=== PATIENT | female | born 1990 | race Caucasian/White ===

== ENCOUNTER 2020-07-25 12:04 | Emergency (ER) | payer SELFPAY ==
[2020-07-25 12:25] VITALS: BP 128/75; PULSE 122; RESP 18; TEMP 36; O2SAT 98
[2020-07-25 12:49] LABS: Add Urine Microscopic? YES; Appearance Urine Cloudy (Clear); Bacteria Urine 1+ /hpf; Bilirubin Urine Negative (Negative); Blood Urine 3+ (Negative); Color Urine Yellow (Yellow); Glucose Urine UA 3+ mg/dL (Negative); Ketones Urine 1+ mg/dL (Negative); Leukocyte Esterase Ur 3+ LEU/UL (Negative); Mucus Urine Moderate /lpf; Nitrate Urine Positive (Negative); Protein Urine 2+ mg/dL (Negative); RBC Urine >75 /hpf (0-2); Specific Grav Ur 1.026 (1.001-1.035); Squamous Epithelial Cell Urine Many /hpf (Few); Urobilinogen Urine Negative mg/dL (<2.0); WBC Clumps Urine Present /HPF; WBC Urine >75 /hpf
--- NOTE | 2020-07-25 14:17 | ED.FEMALEGU ---
HPI - Female Genitourinary General Chief complaint: Urogenital-Female Stated complaint: back pain/ uti? Time Seen by Provider: 07/25/20 14:10 Source: patient Mode of arrival: ambulatory Limitations: no limitations History of Present Illness HPI Narrative: A 30-year-old female presents into the emergency department today with complaints of urinary tract infection-like symptoms. She states it dejesus when she pees feels a lot of pressure and states that she is very familiar with this as she has had it before. Patient notes that the pain is also now starting to go to her back so she is worried that it may be progressing to her kidneys. Patient does endorse shaking chills this morning, she also was alternating with diaphoresis and fever. Related Data Home Medications Medication Instructions Recorded Confirmed insulin glargine [Lantus Solostar 30 unit SUBCUT QAM 07/25/20 07/25/20 U-100 Insulin] insulin regular human [Novolin R 1 sliding scale dose SUBCUT 07/25/20 07/25/20 Regular U-100 Insuln] USEASDIRECTD Allergies Allergy/AdvReac Type Severity Reaction Status Date / Time No Known Allergies Allergy Verified 07/25/20 12:05 Review of Systems Review of Systems: Narrative: CONSTITUTIONAL: Denies fever, chills, or sweats. EYES: Denies visual changes, redness, or discharge. ENT: Denies rhinorrhea, congestion, sore throat, or otalgia. CARDIOVASCULAR: Denies chest pain, palpitations, or edema. RESPIRATORY: Denies cough or dyspnea. GASTROINTESTINAL: Denies abdominal pain, nausea, vomiting, or diarrhea. GENITOURINARY: Endorses dysuria and bladder pressure. SKIN: Denies rash or itching. MUSCULOSKELETAL: Denies back pain, joint pain, or myalgia. NEUROLOGIC: Denies headache, numbness, dizziness, or weakness. PSYCHIATRIC: Denies anxiety or depression. [facility] Past Medical History Medical History Arm fracture, left Diabetes mellitus GERD (gastroesophageal reflux disease) Meningitis UTI (urinary tract infection) Surgical History Surgical History H/O section Family History Family History Mother Family history of elevated blood lipids Social History Social History Second hand tobacco smoke exposure: Yes Gender identity (if verbalized by the patient): Female Exam Narrative: Exam Narrative: GENERAL: Well-appearing, well-nourished, and in no acute distress. HEAD: Normocephalic, atraumatic. EYES: PERRLA and EOMI. ENT: Nares clear, no rhinorrhea or epistaxis. Mucous membranes moist. Oropharynx without tonsillar hypertrophy exudate or other lesions. Bilateral TMs pearly dorman nonbulging NECK: Supple. No adenopathy or masses. No carotid bruits or JVD CHEST: Clear to auscultation. No respiratory distress. No wheezes rales or rhonchi HEART: Regular rate and rhythm. No murmur heard. Normal peripheral pulses. ABDOMEN: Soft, nontender, nondistended, normal active bowel sounds. Right CVA tenderness, positive Tashi's punch EXTREMITIES: Normal range of motion. No edema. SKIN: Warm, dry, no rash. NEURO: No focal deficits. Alert and oriented x3. PSYCH: Normal mood and affect. Course Vital Signs Vital signs: Vital Signs Temperature 36.0 C L 07/25/20 12:25 Pulse Rate 122 H 07/25/20 12:25 Respiratory Rate 18 07/25/20 12:25 Blood Pressure 128/75 07/25/20 12:25 Pulse Oximetry 98 07/25/20 12:25 Temperature 36.0 C L 07/25/20 12:25 Pulse Rate 101 H 07/25/20 15:17 Respiratory Rate 16 07/25/20 15:17 Blood Pressure 99/56 L 07/25/20 15:17 Pulse Oximetry 97 07/25/20 15:17 MDM - Female Genitourinary MDM Narrative Medical decision making narrative: In brief this is a 30-year-old female came into the emergency department with complaints of dysuria, suprapubic pain and pressure and righ
[2020-07-25 14:26] VITALS: BP 110/74; PULSE 115; RESP 12; O2SAT 95
[2020-07-25] MEDS: LACTATED RINGERS 1,000 ML 999 ML IV CONT (14:37)
[2020-07-25] MEDS: KETOROLAC 15 MG/ML VIAL (*BKC) IV PUSH (14:37)
[2020-07-25] MEDS: PHENAZOPYRIDINE HCL 100 MG TABLET 200 MG PO (14:38)
--- NOTE | 2020-07-25 14:39 | PC.NURSE ---
Called laboratory, spoke to Maria Esther and gave VORB for labs ordered by EDP.
[2020-07-25 14:53] LABS: Basophils Absolute Auto 0.1 K/mm3 (0.0-0.1); Basophils Percent Auto 0.4 % (0.2-1.2); Eosinophils Percent Auto 0.1 % (0-4.4); Immature Granulocyte Absolute 0.12 K/mm3 (0.00-0.031); Immature Granulocyte Percent A 0.8 % (0-0.5); Lymphocytes Absolute Auto 1.06 K/mm3 (0.9-3.2); Lymphocytes Percent Auto 7.4 % (18.3-44.2); Mean Corpuscular HGB Conc 34.9 g/dl (32-36); Mean Corpuscular Hemoglobin 30.1 pg (26-34); Mean Corpuscular Volume 86.2 fl (80-100); Mean Platelet Volume 10.7 fl (7.4-10.4); Monocytes Absolute Auto 1.7 K/mm3 (0.1-0.6); Monocytes Percent Auto 11.9 % (2.6-8.5); Neutrophils Absolute Auto 11.3 K/mm3 (1.3-6.7); Neutrophils Percent Auto 79.4 % (45.5-73.1); Platelet Count Result 243 k/mm3 (150-375); Red Blood Count 4.99 M/mm3 (4.2-5.4); Red Cell Distribution Width 11.7 % (11.5-14.5); White Blood Count 14.3 K/mm3 (4.5-10.0)
[2020-07-25 14:56] LABS: Anion Gap 8 mmol/L (8-16); Blood Urea Nitrogen 13 mg/dL (7-17); Calcium 9.3 mg/dL (8.4-10.2); Carbon Dioxide 28 mmol/L (22-30); Chloride 98 mmol/L (98-107); Estimated CRCL calculation 136 ml/min; Estimated Glomerular Filt Rate > 60; Glucose 315 mg/dL (65-105); Potassium 4.1 mmol/L (3.4-5.0); Sodium 134 mmol/L (137-145)
[2020-07-25 14:58] LABS: Alveolar/Arterial O2 Gradient 22.9 mmHg; Base Excess ABG -0.2 mEq/l (+/-2.0); Carboxyhemoglobin 0.4 % THb (0-2.0); Fractional Inspired Oxygen 21 %; HCO3 ABG 24.1 mEq/l (22.0-26.0); Methemoglobin ABG 0.2 %THb (0-1.5); Oxygen Content ABG 18.7 %vol (16.0-22.0); Oxygen Saturation ABG 96.1 % (95.0-100.0); Oxyhemoglobin 94.9 % THb (90.0-100.0); PCO2 ABG 38.6 mmHg (35.0-45.0); PO2 ABG 80.6 mmHg (80.0-100.0); PO2 FiO2 Ratio Arterial Blood 3.84 %; Reduced Hemoglobin 4.5 %THb (0-5.0); pH ABG 7.414 (7.350-7.450)
[2020-07-25 14:59] LABS: Device ROOM AIR; Modified Allen's Test Pass; Site Drawn LEFT RADIAL
[2020-07-25 15:02] LABS: Beta-Hydroxybutyrate/Acetoacetate 0.67 mmol/L (0.02-0.27)
[2020-07-25 15:17] VITALS: BP 99/56; PULSE 101; RESP 16; O2SAT 97
== END 2020-07-25 16:29 | disposition home or self-care (01) ==
LOC: ANHED 15:19
PROVIDERS: Emergency Medicine; Emergency Provider Emergency Medicine
DX: N10 Acute pyelonephritis (principal); B96.89 Other specified bacterial agents as the cause of diseases classified elsewhere; E11.65 Type 2 diabetes mellitus with hyperglycemia; Z79.4 Long term (current) use of insulin; K21.9 Gastro-esophageal reflux disease without esophagitis; Z87.440 Personal history of urinary (tract) infections
CPT/HCPCS: 36415; 36600; 80048; 81001; 82010; 82375; 82805; 83050; 85025; 87077; 87086; 87088; 87186; 96365; 96375; 99284; A9270; J0696; J1885; J7120

== ENCOUNTER 2020-11-18 22:56 | Emergency (ER) | payer SELFPAY ==
[2020-11-18 23:00] VITALS: BP 127/82; PULSE 86; RESP 18; TEMP 35.8; O2SAT 100
--- NOTE | 2020-11-19 01:42 | PC.NURSE ---
pt seen leaving er and walking to pov. no distress noted.
== END 2020-11-19 02:08 | disposition left against medical advice (07) ==
LOC: ANHED 11-19 02:05
DX: T63.301A Toxic effect of unspecified spider venom, accidental (unintentional), initial encounter (principal)
CPT/HCPCS: 99199

== ENCOUNTER 2020-12-25 12:08 | Emergency (ER) | payer SELFPAY ==
--- NOTE | ~2020-12-25 | XR_ITS ---
EXAMINATION: XR foot RT min 3V DATE: 12/25/2020 14:46 INDICATION: Right foot pain. TECHNIQUE: 4 views of right foot were obtained. COMPARISON: None. FINDINGS: Bone alignment is normal. No fracture. There is mild osteoarthritis of first metatarsophala ngeal joint and talonavicular joint. There is an enthesophyte at posterior aspect of calcaneal tubero sity. No radiopaque foreign body. IMPRESSION: 1. Mild polyarticular osteoarthritis. Reviewed, dictated and finalized at location [facility].
[2020-12-25 12:39] VITALS: BP 122/74; PULSE 86; RESP 17; TEMP 36.1; O2SAT 100
--- NOTE | 2020-12-25 14:26 | ED.SKABFB ---
HPI - Skin/Abscess/Foreign Bdy General Chief complaint: Skin/Abscess/Foreign Body Stated complaint: painful knot on foot Time Seen by Provider: 12/25/20 13:35 Source: patient Mode of arrival: ambulatory Limitations: no limitations History of Present Illness HPI narrative: Patient is a 30-year-old female who presents with pain to right plantar foot. She reports removing splinter from foot approximately 1 to 2 weeks ago. Patient reports redness, tenderness and swelling at site of splinter. She denies other injuries. She denies other complaints. Patient does report poking area with the needle approximately 1 to 2 days ago and seen pus. She reports a history of diabetes. She denies all other complaints. MD complaint: abscess/boil Related Data Home Medications Medication Instructions Recorded Confirmed insulin glargine [Lantus Solostar 30 unit SUBCUT QAM 07/25/20 07/25/20 U-100 Insulin] insulin regular human [Novolin R 1 sliding scale dose SUBCUT 07/25/20 07/25/20 Regular U-100 Insuln] USEASDIRECTD Allergies Allergy/AdvReac Type Severity Reaction Status Date / Time No Known Allergies Allergy Verified 07/25/20 12:05 Review of Systems Review of Systems: Narrative: CONSTITUTIONAL: Denies fever, chills, or sweats. EYES: Denies visual changes, redness, or discharge. ENT: Denies rhinorrhea, congestion, sore throat, or otalgia. CARDIOVASCULAR: Denies chest pain, palpitations, or edema. RESPIRATORY: Denies cough or dyspnea. GASTROINTESTINAL: Denies abdominal pain, nausea, vomiting, or diarrhea. GENITOURINARY: Denies dysuria or hematuria. SKIN: Pain to right plantar foot MUSCULOSKELETAL: Denies back pain, joint pain, or myalgia. NEUROLOGIC: Denies headache, numbness, dizziness, or weakness. PSYCHIATRIC: Denies anxiety or depression. [facility] Past Medical History Medical History Arm fracture, left Diabetes mellitus GERD (gastroesophageal reflux disease) Meningitis UTI (urinary tract infection) Surgical History Surgical History H/O section Family History Family History Mother Family history of elevated blood lipids Social History Social History Second hand tobacco smoke exposure: Yes Gender identity (if verbalized by the patient): Female Comments At the time of signature, I have reviewed and agree with nursing past medical, surgical, social, and family history unless otherwise noted. Please see nursing chart for further information. There is no relevant family history pertinent to the presenting complaint. Exam Narrative: Exam Narrative: GENERAL: Well-appearing, well-nourished, and in no acute distress. HEAD: Normocephalic, atraumatic. EYES: EOMI. No redness or drainage. Conjunctiva are normal. ENT: Mucous membranes pink and moist. CHEST: No respiratory distress. HEART: Regular rate and rhythm. No murmur appreciated. Normal peripheral pulses. EXTREMITIES: Normal range of motion. Area of erythema and edema to right plantar foot, healing puncture wound noted. SKIN: Warm, dry, no rash. NEURO: No focal deficits. Alert and oriented x3. Gait steady. PSYCH: Normal affect. No signs of depression or anxiety. Course [employer]/PA Physician Supervision Discussed with Dr. Patel who agrees with plan of care. Vital Signs Vital signs: Vital Signs Temperature 36.1 C L 12/25/20 12:39 Pulse Rate 86 12/25/20 12:39 Respiratory Rate 12/25/20 12:39 Blood Pressure 122/74 12/25/20 12:39 Pulse Oximetry 100 12/25/20 12:39 Temperature 36.1 C L 12/25/20 12:39 Pulse Rate 86 12/25/20 12:39 Respiratory Rate 17 12/25/20 12:39 Blood Pressure 122/74 12/25/20 12:39 Pulse Oximetry 100 12/25/20 12:39 Reviewed MDM - Skin/Abscess/Foreign Bdy MDM Narrative [facility]ica
[2020-12-25 17:04] VITALS: BP 122/66; PULSE 78; RESP 18; O2SAT 99
== END 2020-12-25 17:05 | disposition home or self-care (01) ==
PROVIDERS: Emergency Provider Nurse Practitioner
DX: L02.611 Cutaneous abscess of right foot (principal); L03.115 Cellulitis of right lower limb; E11.9 Type 2 diabetes mellitus without complications; K21.9 Gastro-esophageal reflux disease without esophagitis; Z87.440 Personal history of urinary (tract) infections
CPT/HCPCS: 73630; 99283

== ENCOUNTER 2021-03-27 23:36 | Emergency (ER) | payer SELFPAY ==
--- NOTE | ~2021-03-27 | CT_ITS ---
EXAMINATION: CT abdomen pelvis w con DATE: 03/28/2021 00:30 INDICATION: Lower abdominal pain, diarrhea TECHNIQUE: Computed tomography (CT) of the abdomen and pelvis was performed with 100 cc Omnipaque 350 intravenous contrast. Automated exposure control and iterative reconstruction technique were employe d. Exam dose: 879.72 mGy-cm total exam DLP. COMPARISON: 09/07/2014 abdominal ultrasound examination 09/20/2014 radionuclide hepatobiliary scan FINDINGS: Minimal bilateral dependent lower lobe atelectasis, right greater than left. Normal heart size. No pericardial or pleural effusion. Diffuse hepatic steatosis. No hepatic space-occupying mass lesion is evident. The gallbladder is pres ent. No gallbladder wall thickening or pericholecystic fluid or fat stranding. No bile duct or pancre atic duct dilatation. No pancreatic mass lesion or calcification. Normal splenic size. Normal morphology of the adrenal glands. No renal mass lesion or urinary tract calculus or hydroureteronephrosis. There is diffuse thickening of the urinary bladder wall, suggesting cystitis. The uterus and adnexal areas are unremarkable. No bowel obstruction, bowel wall thickening, pneumatosis or intraperitoneal free air. Normal appendix . Included skeletal structures are unremarkable. IMPRESSION: Negative gallbladder wall thickening suggesting cystitis Diffuse hepatic steatosis Normal appendix Reviewed, dictated and finalized at [facility]. Reviewed, dictated and finalized at location A.
[2021-03-27 23:39] VITALS: BP 109/75; PULSE 89; RESP 17; TEMP 36.7; O2SAT 98
--- NOTE | 2021-03-27 23:47 | ED.ABDPAIN ---
HPI - Abdominal Pain General Chief Complaint: Abdominal Pain Stated Complaint: lower abd pain Time Seen by Provider: 03/27/21 23:40 Source: patient History of Present Illness HPI narrative: Patient presents with lower abdominal pain. Patient reports symptoms started today and have gotten progressively worse. Pain is crampy constant is in her entire lower abdomen and does not radiate anywhere no clear aggravating or alleviating factors. Symptoms are associated with diarrhea which denies nausea or vomiting. Denies vaginal bleeding or urinary symptoms. She denies fevers. Reports history of diabetes not taking medications because she does not have insurance and cannot afford them. Related Data Home Medications Medication Instructions Recorded Confirmed insulin glargine [Lantus Solostar 30 unit SUBCUT QAM 07/25/20 07/25/20 U-100 Insulin] insulin regular human [Novolin R 1 sliding scale dose SUBCUT 07/25/20 07/25/20 Regular U-100 Insuln] USEASDIRECTD Allergies Allergy/AdvReac Type Severity Reaction Status Date / Time No Known Allergies Allergy Verified 03/27/21 23:49 Review of Systems Review of Systems: CONSTITUTIONAL: Denies fever, chills, or sweats. EYES: Denies visual changes, redness, or discharge. ENT: Denies rhinorrhea, congestion, sore throat, or otalgia. CARDIOVASCULAR: Denies chest pain, palpitations, or edema. RESPIRATORY: Denies cough or dyspnea. GASTROINTESTINAL: Reports abdominal pain and diarrhea GENITOURINARY: Denies dysuria or hematuria. SKIN: Denies rash or itching. MUSCULOSKELETAL: Denies back pain, joint pain, or myalgia. NEUROLOGIC: Denies headache, numbness, dizziness, or weakness. PSYCHIATRIC: Denies anxiety or depression. All systems reviewed & are unremarkable except as noted in HPI and below PMFSH Past Medical History Medical History Arm fracture, left Diabetes mellitus GERD (gastroesophageal reflux disease) Meningitis UTI (urinary tract infection) Surgical History Surgical History H/O section Family History Family History Mother Family history of elevated blood lipids Social History Social History Second hand tobacco smoke exposure: Yes Gender identity (if verbalized by the patient): Female Exam Narrative: GENERAL: Well-appearing, well-nourished, and in mild distress due to pain HEAD: Normocephalic, atraumatic. EYES: PERRLA and EOMI. ENT: Nares clear, no rhinorrhea or epistaxis. Mucous membranes moist. NECK: Supple. No masses. No JVD ABDOMEN: Moderate diffuse tenderness in the lower abdomen without rebound or guarding soft, nontender, nondistended EXTREMITIES: Normal range of motion. No edema. SKIN: Warm, dry, no rash. NEURO: No focal deficits. Alert and oriented x3. PSYCH: Normal mood and affect. Course Reevaluation(s) Reevaluation #1: Patient reports feeling improved and is resting comfortably. Work-up most suggestive of urinary tract infection. Patient given initial dose of antibiotics. With immune work-up unremarkable. Patient is appropriate for trial of outpatient antibiotics. Patient comfortable outpatient plan. Date: 03/28/21 Time: 00:59 Vital Signs Vital signs: Vital Signs Temperature 36.7 C 03/27/21 23:39 Pulse Rate 89 03/27/21 23:39 Respiratory Rate 17 03/27/21 23:39 Blood Pressure 109/75 03/27/21 23:39 Pulse Oximetry 98 03/27/21 23:39 Temperature 36.7 C 03/27/21 23:39 Pulse Rate 78 03/28/21 01:00 Respiratory Rate 18 03/28/21 01:00 Blood Pressure 111/73 03/28/21 01:00 Pulse Oximetry 100 03/28/21 01:00 MDM - Abdominal Pain MDM Narrative Medical decision making narrative: H&P as above, vss, pt looks clinically well, exam tenderness in the lower abdomen labs with UA concerning for i
[2021-03-27] MEDS: SODIUM CHLORIDE 0.9% IV 1,000 ML 999 ML IV CONT (23:50)
[2021-03-27 23:59] LABS: Basophils Absolute Auto 0.1 K/mm3 (0.0-0.1); Basophils Percent Auto 0.4 % (0.2-1.2); Eosinophils Absolute Auto 0.1 K/mm3 (0-0.3); Eosinophils Percent Auto 0.6 % (0-4.4); Hematocrit 40.3 % (37.0-47.0); Hemoglobin 14.5 g/dL (12.0-15.0); Immature Granulocyte Absolute 0.06 K/mm3 (0.00-0.031); Immature Granulocyte Percent A 0.4 % (0-0.5); Lymphocytes Absolute Auto 3.89 K/mm3 (0.9-3.2); Lymphocytes Percent Auto 23.9 % (18.3-44.2); Mean Corpuscular Hemoglobin 30.7 pg (26-34); Mean Corpuscular Volume 85.2 fl (80-100); Mean Platelet Volume 10.2 fl (7.4-10.4); Monocytes Absolute Auto 1.1 K/mm3 (0.1-0.6); Neutrophils Percent Auto 67.7 % (45.5-73.1); Platelet Count Result 237 k/mm3 (150-375); Red Blood Count 4.73 M/mm3 (4.2-5.4); Red Cell Distribution Width 11.9 % (11.5-14.5); White Blood Count 16.3 K/mm3 (4.5-10.0)
[2021-03-28 00:01] LABS: Glucose Point of Care 301 mg/dl (65-105)
[2021-03-28 00:08] LABS: Alanine Aminotransferase 49 U/L (4-35); Albumin Level 4.2 g/dL (3.5-5.1); Alkaline Phosphatase 78 U/L (38-126); Anion Gap 9 mmol/L (8-16); Aspartate Amino Transferase 34 U/L (14-36); Bilirubin,Total 0.9 mg/dL (0.2-1.3); Blood Urea Nitrogen 12 mg/dL (7-17); Calcium 8.7 mg/dL (8.4-10.2); Carbon Dioxide 25 mmol/L (22-30); Chloride 102 mmol/L (98-107); Estimated CRCL calculation 139 ml/min; Estimated Glomerular Filt Rate > 60; Glucose 295 mg/dL (65-110); Lipase 154 U/L (23-300); Potassium 3.7 mmol/L (3.4-5.0); Sodium 136 mmol/L (137-145)
[2021-03-28 00:11] LABS: Add Urine Microscopic? YES; Appearance Urine Cloudy (Clear); Bacteria Urine Trace /hpf; Bilirubin Urine Negative (Negative); Blood Urine Negative (Negative); Color Urine Yellow (Yellow); Glucose Urine UA 3+ mg/dL (Negative); Ketones Urine Negative (Negative); Leukocyte Esterase Ur 2+ LEU/UL (Negative); Mucus Urine Rare /lpf; Nitrate Urine Negative (Negative); Protein Urine 1+ mg/dL (Negative); RBC Urine 21-50 /hpf (0-2); Specific Grav Ur 1.035 (1.001-1.035); Squamous Epithelial Cell Urine Many /hpf (Few); Urobilinogen Urine Negative mg/dL (<2.0); WBC Urine >75 /hpf
[2021-03-28 00:19] LABS: Beta-Hydroxybutyrate/Acetoacetate 0.12 mmol/L (0.02-0.27)
[2021-03-28 00:28] LABS: Beta HCG Quantitative < 2.39 mIU/ML
--- NOTE | 2021-03-28 00:31 | PC.NURSE ---
Pt to CT scan via stretcher at this time.
[2021-03-28 01:00] VITALS: BP 111/73; PULSE 78; RESP 18; O2SAT 100
== END 2021-03-28 01:22 | disposition home or self-care (01) ==
PROVIDERS: Emergency Provider Emergency Medicine
DX: N30.01 Acute cystitis with hematuria (principal); D72.829 Elevated white blood cell count, unspecified; E11.9 Type 2 diabetes mellitus without complications; Z79.4 Long term (current) use of insulin; K21.9 Gastro-esophageal reflux disease without esophagitis; Z87.440 Personal history of urinary (tract) infections; Z77.22 Contact with and (suspected) exposure to environmental tobacco smoke (acute) (chronic)
CPT/HCPCS: 36415; 74177; 80053; 81001; 81025; 82010; 82948; 83690; 84702; 85025; 87077; 87086; 87088; 87186; 96365; 99284; J0131; J0696; J7030; Q9967

== ENCOUNTER 2021-11-08 10:11 | Emergency (ER) | payer SELFPAY ==
[2021-11-08] VITALS (39 sets, daily range): BP systolic 99–148; BP diastolic 46–93; PULSE 77; RESP 22; TEMP 36.4; O2SAT 95–100
--- NOTE | ~2021-11-08 | CT_ITS ---
EXAMINATION: CT abdomen pelvis wo con DATE: 11/08/2021 13:04 INDICATION: Lower abdominal pain. Urinary tract infection. TECHNIQUE: Computed tomography (CT) of the abdomen and pelvis was performed without intravenous contr ast. Automated exposure control and iterative reconstruction technique were employed. The dose-length product was 866.10 mGy-cm. COMPARISON: 03/28/2021 FINDINGS: Minimal dependent atelectasis in the bilateral lower lobes. Heart size is normal. No pericardial or p leural effusion. Diffuse hepatic steatosis. Gallbladder, spleen, pancreas, bilateral adrenal glands a nd kidneys are normal. No urolithiasis or hydronephrosis. There is diffuse wall thickening of the makenna dder. Anteverted uterus and bilateral adnexa are unremarkable. Bowels including the appendix are norm al. Small amount of likely physiologic free fluid in the pelvis. Tiny fat-containing umbilical hernia . Bones are unremarkable. IMPRESSION: 1. Diffuse bladder wall thickening suspicious for cystitis. Correlate with urinalysis. 2. Diffuse hepatic steatosis. Reviewed, dictated and finalized at location A. IMPRESSION: 1. Diffuse bladder wall thickening suspicious for cystitis. Correlate with urin alysis. 2. Diffuse hepatic steatosis.
--- NOTE | ~2021-11-08 | US_ITS ---
EXAMINATION: US pelvic complete DATE: 11/08/2021 11:46 INDICATION: Pelvic pain TECHNIQUE: Multiple transabdominal and endovaginal sonographic images of the pelvis were obtained. COMPARISON: None. FINDINGS: The uterus measures 7.7 x 5.3 x 4.5 cm. The endometrial complex measures 4 mm in thickness. The righ t ovary measures 3.4 x 2.3 x 2.7 cm. The left ovary measures 2.6 x 2.3 x 2.1 cm. Vascular flow identi fied in both ovaries on color Doppler. There is no free fluid in the pelvis. IMPRESSION: 1. Normal pelvic ultrasound with vascular flow identified in both ovaries on color Doppler. Reviewed, dictated and finalized at location A. IMPRESSION: 1. Normal pelvic ultrasound with vascular flow identified in both ovaries on co noreen Doppler.
--- NOTE | 2021-11-08 10:45 | ED.ABDPAIN ---
HPI - Abdominal Pain General Chief Complaint: Abdominal Pain Stated Complaint: ABD Pain Time Seen by Provider: 11/08/21 10:25 Source: patient Mode of arrival: ambulatory Limitations: no limitations History of Present Illness HPI narrative: This is a 31 year old female that presents to the ER for low abdominal pain present since this morning. Reports the pain is generalized in the lower abdomen. Feels sharp/cramping. Associated with some nausea. Denies fever, vomiting, dysuria or hematuria. Related Data Home Medications Medication Instructions Recorded Confirmed insulin glargine [Lantus Solostar 30 unit SUBCUT QAM 07/25/20 07/25/20 U-100 Insulin] insulin regular human [Novolin R 1 sliding scale dose SUBCUT 07/25/20 07/25/20 Regular U-100 Insuln] USEASDIRECTD Allergies Allergy/AdvReac Type Severity Reaction Status Date / Time No Known Allergies Allergy Verified 11/08/21 10:28 Review of Systems Review of Systems: CONSTITUTIONAL: Denies fever GASTROINTESTINAL: Reports abdominal pain, nausea. Denies vomiting, or diarrhea. GENITOURINARY: Denies dysuria or hematuria. All systems reviewed & are unremarkable except as noted in HPI and below PMFSH Past Medical History Medical History Arm fracture, left Diabetes mellitus GERD (gastroesophageal reflux disease) Meningitis UTI (urinary tract infection) Surgical History Surgical History H/O section Family History Family History Mother Family history of elevated blood lipids Social History Social History (Updated 11/08/21 @ 10:48 by Claudia Suh PA-C) Second hand tobacco smoke exposure: Yes Substance use: never Gender identity (if verbalized by the patient): Female Exam Narrative: GENERAL: Well-appearing, well-nourished, and in mild acute distress due to pain. HEAD: Normocephalic, atraumatic. EYES: EOMI. CHEST: Clear to auscultation. No respiratory distress. No wheezes rales or rhonchi HEART: Regular rate and rhythm. No murmur heard. Normal peripheral pulses. ABDOMEN: Soft, nondistended, normal active bowel sounds. Tender to palpation in the lower abdomen, without guarding. No CVA tenderness EXTREMITIES: Normal range of motion. No edema. SKIN: Warm, dry, no rash. NEURO: No focal deficits. Alert and oriented x3. PSYCH: Normal mood and affect Course Vital Signs Vital signs: Vital Signs Pulse Oximetry 100 11/08/21 10:21 Temperature 97.6 F 11/08/21 10:58 Pulse Rate 77 11/08/21 10:22 Respiratory Rate 22 H 11/08/21 10:22 Blood Pressure 102/63 11/08/21 13:17 Pulse Oximetry 99 11/08/21 13:17 MDM - Abdominal Pain MDM Narrative Medical decision making narrative: Patient presents to the emergency department for lower abdominal pain present today. She is afebrile and nontoxic-appearing. Her vitals are stable. CBC without concerning findings. Metabolic panel does show elevation in blood glucose to 291. Patient does have known history of diabetes. Lipase is normal. UA with evidence of infection. Bedside test is negative. Pelvic ultrasound without concerning findings. CT scan of the abdomen and pelvis shows findings consistent with cystitis. She does not report any concern for STDs. Patient was updated on case findings. Given dose of Rocephin in the ED. Will be discharged on oral antibiotics. She is to follow-up with primary care doctor. She was given warnings to return to the ER Lab Data Attestation: I reviewed the patient's lab results. Result diagrams: 11/08/21 10:53 11/08/21 10:53 Labs: Lab Results 11/08/21 11/08/21 11/08/21 Range/Units 10:53 10:53 10:53 WBC 8.5 (4.5-10.0) K/mm3 RBC 4.75 (4.2-5.4) M/mm3 Hgb 14.2 (12.0-15.0) g/dL Hct 40.3 (37.0-47.0) % MCV 84.8 (80-100)
[2021-11-08 11:06] LABS: Basophils Percent Auto 0.4 % (0.2-1.2); Eosinophils Absolute Auto 0.1 K/mm3 (0-0.3); Eosinophils Percent Auto 0.9 % (0-4.4); Hematocrit 40.3 % (37.0-47.0); Hemoglobin 14.2 g/dL (12.0-15.0); Immature Granulocyte Absolute 0.02 K/mm3 (0.00-0.031); Immature Granulocyte Percent A 0.2 % (0-0.5); Lymphocytes Absolute Auto 4.02 K/mm3 (0.9-3.2); Lymphocytes Percent Auto 47.6 % (18.3-44.2); Mean Corpuscular HGB Conc 35.2 g/dl (32-36); Mean Corpuscular Hemoglobin 29.9 pg (26-34); Mean Corpuscular Volume 84.8 fl (80-100); Monocytes Absolute Auto 0.6 K/mm3 (0.1-0.6); Monocytes Percent Auto 6.9 % (2.6-8.5); Neutrophils Absolute Auto 3.7 K/mm3 (1.3-6.7); Platelet Count Result 287 k/mm3 (150-375); Red Blood Count 4.75 M/mm3 (4.2-5.4); White Blood Count 8.5 K/mm3 (4.5-10.0)
[2021-11-08 11:07] LABS: Appearance Urine Slightly Cloudy (Clear); Bilirubin Urine Negative (Negative); Blood Urine 1+ (Negative); Color Urine Yellow (Yellow); Glucose Urine UA 3+ mg/dL (Negative); Ketones Urine 1+ mg/dL (Negative); Leukocyte Esterase Ur Negative LEU/UL (Negative); Nitrate Urine Positive (Negative); Protein Urine Negative (Negative); Specific Grav Ur 1.025 (1.001-1.035); Urobilinogen Urine 0.2 mg/dL (<2.0); pH Urine 5.5 (5.0-9.0)
[2021-11-08] MEDS: MORPHINE SULFATE (*CRX) 4 MG/ML INJ IV PUSH (11:10)
[2021-11-08] MEDS: ONDANSETRON INJ 4 MG/2 ML VIAL IV PUSH (11:10)
[2021-11-08] MEDS: SODIUM CHLORIDE 0.9% IV 1,000 ML 999 ML IV CONT (11:12)
[2021-11-08 11:20] LABS: Alanine Aminotransferase 45 U/L (6-35); Albumin Level 4.1 g/dL (3.5-5.1); Alkaline Phosphatase 79 U/L (38-126); Anion Gap 8 mmol/L (8-16); Aspartate Amino Transferase 33 U/L (14-36); Bacteria Urine 2+ /hpf; Bilirubin,Total 0.7 mg/dL (0.2-1.3); Blood Urea Nitrogen 15 mg/dL (7-17); Calcium 8.2 mg/dL (8.4-10.2); Carbon Dioxide 22 mmol/L (22-30); Chloride 103 mmol/L (98-107); Estimated CRCL calculation 139 ml/min; Estimated Glomerular Filt Rate > 60; Glucose 291 mg/dL (65-110); Lipase 128 U/L (23-300); Sodium 133 mmol/L (137-145); Squamous Epithelial Cell Urine Occasional /hpf (Few)
[2021-11-08 11:37] LABS: Add Urine Microscopic? YES
== END 2021-11-08 15:05 | disposition home or self-care (01) ==
PROVIDERS: Physician Assistant; Emergency Provider Emergency Medicine
DX: N30.00 Acute cystitis without hematuria (principal); E11.9 Type 2 diabetes mellitus without complications; K21.9 Gastro-esophageal reflux disease without esophagitis; Z87.440 Personal history of urinary (tract) infections; Z79.4 Long term (current) use of insulin; Z77.22 Contact with and (suspected) exposure to environmental tobacco smoke (acute) (chronic); K76.0 Fatty (change of) liver, not elsewhere classified
CPT/HCPCS: 36415; 74176; 76856; 80053; 81001; 81025; 83690; 85025; 87077; 87086; 87186; 96365; 96367; 96375; 99284; J0131; J0696; J2270; J2405; J7030

== ENCOUNTER 2022-06-05 11:13 | Emergency (ER) | payer SELFPAY ==
[2022-06-05 11:33] VITALS: BP 117/77; PULSE 87; RESP 24; TEMP 36.3; O2SAT 100
[2022-06-05 11:35] VITALS: BP 117/77; PULSE 87; RESP 24; TEMP 36.3; O2SAT 100
--- NOTE | 2022-06-05 12:03 | ED.URI ---
HPI - URI/Sore Throat General Chief Complaint: Upper Respiratory Infection Stated Complaint: Cold/Flu Time Seen by Provider: 06/05/22 12:02 Source: patient and RN notes reviewed Mode of arrival: ambulatory Limitations: no limitations History of Present Illness HPI Narrative: 32-year-old female presents with concern for cough. She is in the 1st trimester of and is unsure what she can take for cough. She reports she has had symptoms for approximately 1 week. She denies shortness of breath or fever, chills, sweats. She reports scratchy throat, not sore throat. She denies taking any medications for her symptoms. MD elicited complaint: cough Related Data Home Medications Medication Instructions Recorded Confirmed insulin glargine 100 unit/mL (3 30 unit subcut QAM 07/25/20 06/05/22 mL) subcutaneous pen (Lantus Solostar U-100 Insulin) insulin regular human 100 unit/mL 1 sliding scale dose subcut 07/25/20 06/05/22 injection solution cartridge USEASDIRECTD Allergies Allergy/AdvReac Type Severity Reaction Status Date / Time No Known Allergies Allergy Verified 06/05/22 11:34 Review of Systems Review of Systems: CONSTITUTIONAL: Denies malaise, chills, sweats, or fever. EYES: Denies visual changes, redness, or discharge. ENT: Denies rhinorrhea, congestion, sinus pain, otalgia and sore throat. CARDIOVASCULAR: Denies chest pain, palpitations, or edema. RESPIRATORY: Reports cough. Denies dyspnea. GASTROINTESTINAL: Denies abdominal pain, nausea, vomiting, diarrhea SKIN: Denies rash or itching. MUSCULOSKELETAL: Denies myalgia. NEUROLOGIC: Denies headache. All systems reviewed & are unremarkable except as noted in HPI and below PMFSH Past Medical History Medical History Arm fracture, left Diabetes mellitus GERD (gastroesophageal reflux disease) Meningitis UTI (urinary tract infection) Surgical History Surgical History H/O section Family History Family History Mother Family history of elevated blood lipids Social History Social History (Updated 11/08/21 @ 10:48 by Claudia Suh PA-C) Second hand tobacco smoke exposure: Yes Substance use: never Gender identity (if verbalized by the patient): Female Comments At time of signature, agree with nursing past medical, surgical, social and family history. There is no relevant family history pertinent to the presenting complaint Exam Narrative: GENERAL: Well-appearing, well-nourished, and in no acute distress. HEAD: Normocephalic EYES: PERRLA, conjunctivae clear ENT: Nares clear, clear discharge. Mucous membranes moist. TM pearly dorman with sharp light reflex bilaterally; no tragal tenderness. Oropharynx not erythematous without lesions. Tonsils not enlarged and without exudate, no drooling, no hoarseness, no trismus, uvula midline. NECK: Supple. No lymphadenopathy CHEST: Clear to auscultation, breath sounds equal. No wheezing, rhonchi, rales, or stridor. No respiratory distress, speaks in full sentences. HEART: Regular rate and rhythm. No murmur heard. SKIN: Warm, dry, no rash. NEURO: Alert and oriented x3. PSYCH: Normal mood and affect Course Course Emergency Course: Patient is aware of diagnosis, understands and agrees to treatment plan. Anticipatory guidance given. Patient agrees to follow-up as directed and is aware of reasons to seek care at the emergency department. Portions of this record may have been created with voice recognition software Level of Care: Express Care Visit Vital Signs Vital signs: Vital Signs Temperature 97.3 F L 06/05/22 11:33 Pulse Rate 87 06/05/22 11:33 Respiratory Rate 24 H 06/05/22 11:33 Blood Pressure 117/77 06/05/22 11:33 Pulse Oximetry 100 06/05/22 11:33 Oxygen Delivery Room Air 06/05/22 11:33 Temperature 9
== END 2022-06-05 12:13 | disposition home or self-care (01) ==
PROVIDERS: Emergency Provider Nurse Practitioner
DX: R05.9 Cough, unspecified (principal); E11.9 Type 2 diabetes mellitus without complications; Z79.4 Long term (current) use of insulin; Z20.822 Contact with and (suspected) exposure to COVID-19
CPT/HCPCS: 87426; 99213; C9803; G0463

== ENCOUNTER 2022-08-13 05:00 | Emergency (ER) | payer MEDICAID, SELFPAY ==
[2022-08-13] VITALS (10 sets, daily range): BP systolic 118–144; BP diastolic 70–99; PULSE 82–88; RESP 16; TEMP 36.2; O2SAT 97–100
--- NOTE | ~2022-08-13 | US_ITS ---
Pelvic ultrasound. Clinical History: First trimester , vaginal bleeding Technique: Realtime transabdominal scanning of the pelvis was performed. Patient refused transvaginal imaging. Findings: The uterus is anteverted. The endometrial stripe has a thickness of 11 mm. No intrauterine gestational sac is identified. Neither ovary seen. No adnexal mass seen. There is no evidence of free fluid in the cul de sac. Impression: Positive test without intrauterine gestation. Differential diagnosis includes early normal , spontaneous , or nonvisualized ectopic . Correlate clinically. Continued follow up with serial beta hCG, and repeat ultrasound as warranted, is advised. Reviewed, dictated and finalized at location M. F [employer]ELOP[employer]UC[employer] Impression: Positive test without intrauterine gestation. Differential diagnosis includes early normal , spontaneous , or nonvisualized ectopic . Correlate clinically. Continued follow up with serial beta hCG, and repeat ultrasound as warranted, is advised.
[2022-08-13 05:48] LABS: Basophils Absolute Auto 0.1 K/mm3 (0.0-0.1); Basophils Percent Auto 0.5 % (0.2-1.2); Eosinophils Absolute Auto 0.2 K/mm3 (0-0.3); Eosinophils Percent Auto 1.5 % (0-4.4); Hematocrit 37.3 % (37.0-47.0); Hemoglobin 13.5 g/dL (12.0-15.0); Immature Granulocyte Absolute 0.05 K/mm3 (0.00-0.031); Immature Granulocyte Percent A 0.5 % (0-0.5); Lymphocytes Absolute Auto 3.19 K/mm3 (0.9-3.2); Lymphocytes Percent Auto 32.2 % (18.3-44.2); Mean Corpuscular HGB Conc 36.2 g/dl (32-36); Mean Corpuscular Hemoglobin 30.5 pg (26-34); Mean Corpuscular Volume 84.2 fl (80-100); Mean Platelet Volume 9.6 fl (7.4-10.4); Monocytes Absolute Auto 0.8 K/mm3 (0.1-0.6); Monocytes Percent Auto 7.6 % (2.6-8.5); Neutrophils Absolute Auto 5.7 K/mm3 (1.3-6.7); Neutrophils Percent Auto 57.7 % (45.5-73.1); Platelet Count Result 228 k/mm3 (150-375); Red Blood Count 4.43 M/mm3 (4.2-5.4); White Blood Count 9.9 K/mm3 (4.5-10.0)
[2022-08-13] MEDS: SODIUM CHLORIDE 0.9% IV 1,000 ML 999 ML IV CONT (06:00)
[2022-08-13 06:01] LABS: Alanine Aminotransferase 35 U/L (6-35); Alkaline Phosphatase 64 U/L (38-126); Anion Gap 8 mmol/L (8-16); Aspartate Amino Transferase 32 U/L (14-36); Bilirubin,Total 0.5 mg/dL (0.2-1.3); Blood Urea Nitrogen 10 mg/dL (7-17); Calcium 8.3 mg/dL (8.4-10.2); Carbon Dioxide 22 mmol/L (22-30); Chloride 108 mmol/L (98-107); Estimated CRCL calculation 174 ml/min; Estimated Glomerular Filt Rate > 60; Glucose 173 mg/dL (65-110); Potassium 4.1 mmol/L (3.4-5.0); Sodium 138 mmol/L (137-145)
--- NOTE | 2022-08-13 06:15 | ED.GENADULT ---
HPI - General Adult General Chief complaint: Abdominal Pain Stated complaint: abd pain Time Seen by Provider: 08/13/22 06:15 Source: RN notes reviewed History of Present Illness HPI narrative: Patient presents emergency department from home for abdominal pain. Patient states that she is G2, P1 and is followed at [facility] for [employer]. States that she had gone for an appointment on Wednesday and she was possibly 15 weeks but the baby only measured 11 weeks and that have a heartbeat at that time she is scheduled for D&C for this coming August 14. Patient states that yesterday morning she began to have some lower abdominal pain cramping that progressed throughout the day and then awoke her more severely from sleep at 2 in the morning states that it is associated with vaginal bleeding. She denies taking anything for the pain. She denies any fevers or chills chest pain shortness of breath or any other symptoms Related Data Home Medications Medication Instructions Recorded Confirmed insulin glargine 100 unit/mL (3 30 unit subcut QAM 07/25/20 06/05/22 mL) subcutaneous pen (Lantus Solostar U-100 Insulin) insulin regular human 100 unit/mL 1 sliding scale dose subcut 07/25/20 06/05/22 injection solution cartridge USEASDIRECTD Allergies Allergy/AdvReac Type Severity Reaction Status Date / Time No Known Allergies Allergy Verified 06/05/22 11:34 Review of Systems Review of Systems: Gen.: Denies fevers or chills ENT: Denies congestion Respiratory: Denies shortness of breath or cough CV: Denies chest pain or palpitations GI: Reports lower abdominal pain, denies nausea, emesis or diarrhea see HPI Musculoskeletal: Denies back pain or muscle pain Neuro: Denies numbness, tingling, weakness or focal weakness Skin: Denies rash Except as documented, all other systems reviewed and negative PMF Past Medical History Medical History Arm fracture, left Diabetes mellitus GERD (gastroesophageal reflux disease) Meningitis UTI (urinary tract infection) Surgical History Surgical History H/O section Family History Family History Mother Family history of elevated blood lipids Social History Social History Second hand tobacco smoke exposure: Yes Substance use: never Gender identity (if verbalized by the patient): Female Exam Narrative: APPEARANCE: No acute distress, nontoxic, resting in bed HEENT: Normocephalic, atraumatic, RESPIRATORY: No respiratory distress, clear to auscultation bilaterally with no rhonchi wheezing or rales CARDIOVASCULAR: RRR s murmur ABDOMINAL: Soft nondistended tender to palpation right lower quadrant left lower quadrant no tenderness in the right upper quadrant left upper quadrant no rebound or guarding MUSCULOSKELETAl: Moves all extremities. No clubbing, cyanosis or edema. NEURO: Awake and alert. Following commands, speech normal, no focal deficits SKIN:: Warm, dry. Normal Color PSYCHIATRIC: Normal affect/mood Course Course Emergency Course: Care will be turned over Dr. Hilliard at shift change awaiting ultrasound results and further disposition Vital Signs Vital signs: Vital Signs Temperature 97.1 F L 08/13/22 05:04 Pulse Rate 88 08/13/22 05:04 Respiratory Rate 16 08/13/22 05:04 Blood Pressure 118/70 08/13/22 05:04 Pulse Oximetry 99 08/13/22 05:04 Oxygen Delivery Room Air 08/13/22 05:04 Temperature 97.1 F L 08/13/22 05:04 Pulse Rate 82 08/13/22 09:15 Respiratory Rate 16 08/13/22 09:15 Blood Pressure 134/72 08/13/22 09:15 Pulse Oximetry 99 08/13/22 09:15 Oxygen Delivery Room Air 08/13/22 05:04 Medical Decision Making Vital Signs Vital Signs: Vital Signs Temperature 97.1 F L 07/23
[2022-08-13 06:17] LABS: Beta HCG Quantitative 196.27 mIU/ML
[2022-08-13 06:24] LABS: Appearance Urine Slightly Cloudy (Clear); Bilirubin Urine Negative (Negative); Blood Urine 3+ (Negative); Color Urine Yellow (Yellow); Glucose Urine UA Trace mg/dL (Negative); Ketones Urine Negative (Negative); Leukocyte Esterase Ur Negative LEU/UL (Negative); Nitrate Urine Negative (Negative); Protein Urine 2+ mg/dL (Negative); Specific Grav Ur >= 1.030 (1.001-1.035); Urobilinogen Urine 0.2 mg/dL (<2.0); pH Urine 5.5 (5.0-9.0)
[2022-08-13 06:28] LABS: Bacteria Urine Trace /hpf; Mucus Urine Rare /lpf; RBC Urine 21-50 /hpf (0-2); Squamous Epithelial Cell Urine Many /hpf (Few); WBC Urine 31-50 /hpf
[2022-08-13 06:38] LABS: Add Urine Microscopic? YES
[2022-08-13] MEDS: MORPHINE SULFATE (*CRX) 2 MG/ML INJ IV PUSH (06:47)
--- NOTE | 2022-08-13 07:24 | PC.NURSE ---
pt to ultrasound at this time.
--- NOTE | 2022-08-13 09:06 | PC.NURSE ---
After walking out of room pt had sat on the bedside commode and tissue was released around 0820. tissue was placed in specimen container and sent down to lab. pt signed disposition form and elected for the hospital to handle the disposition of the remains. Dick was called at 0845 and spoke with Francheska. [facility] called at 0900 and spoke with Desean. She states tissue does not qualify for donation due to age. Reference number is [id number]. SHARE folder was given to pt.
== END 2022-08-13 09:15 | disposition home or self-care (01) ==
PROVIDERS: Emergency Medicine; Emergency Provider Emergency Medicine; PCP Emergency Medicine
DX: O03.9 Complete or unspecified spontaneous abortion without complication (principal); E11.9 Type 2 diabetes mellitus without complications; K21.9 Gastro-esophageal reflux disease without esophagitis; Z77.22 Contact with and (suspected) exposure to environmental tobacco smoke (acute) (chronic); Z79.4 Long term (current) use of insulin; Z87.440 Personal history of urinary (tract) infections
CPT/HCPCS: 36415; 76801; 80053; 81001; 84702; 85025; 85461; 86850; 86900; 86901; 87086; 87088; 88305; 96365; 96375; 99284; J0131; J2270; J7030

== ENCOUNTER 2022-09-20 18:23 | Emergency (ER) | payer OTHER, SELFPAY ==
[2022-09-20 18:35] VITALS: BP 136/84; PULSE 94; RESP 12; TEMP 36.2; O2SAT 97
--- NOTE | 2022-09-20 18:52 | ED.SKABFB ---
HPI - Skin/Abscess/Foreign Bdy General Chief complaint: Skin/Abscess/Foreign Body Stated complaint: wasp sting rt foot Time Seen by Provider: 09/20/22 18:46 Source: patient Mode of arrival: ambulatory Limitations: no limitations History of Present Illness HPI narrative: 32-year-old female presenting for complaint of right foot swelling after reported wasps sting at 10:00 a.m. today. States she was laying in bed when she felt a sharp poke to the right 4th toe under the sheet. She did not see the sting take place but saw a wasp on the wall. Has taken Benadryl for symptoms. Endorses mild itching and tenderness to the foot. No other sites of skin changes. Denies bruising or redness. Denies any associated lips, tongue, throat swelling, itching, shortness of breath or wheezing. Denies nausea, vomiting, fevers or chills. Related Data Home Medications Medication Instructions Recorded Confirmed insulin glargine 100 unit/mL (3 30 unit subcut QAM 07/25/20 09/20/22 mL) subcutaneous pen (Lantus Solostar U-100 Insulin) insulin regular human 100 unit/mL 1 sliding scale dose subcut 07/25/20 09/20/22 injection solution cartridge USEASDIRECTD bupropion HCl 150 mg 24 hr tablet, 150 mg PO DAILY 09/20/22 09/20/22 extended release Allergies Allergy/AdvReac Type Severity Reaction Status Date / Time No Known Allergies Allergy Verified 09/20/22 18:39 Review of Systems Review of Systems: CONSTITUTIONAL: Denies body aches, fever, chills, or sweats. EYES: Denies visual changes, redness, or discharge. ENT: Denies rhinorrhea, congestion CARDIOVASCULAR: Denies chest pain, palpitations, or edema. RESPIRATORY: Denies cough or dyspnea. GASTROINTESTINAL: Denies abdominal pain, nausea, vomiting, or diarrhea. SKIN: per HPI MUSCULOSKELETAL: Denies back pain, joint pain, or myalgia. NEUROLOGIC: Denies headache, numbness, tingling, or weakness. [facility], [facility] Past Medical History Medical History Arm fracture, left Diabetes mellitus GERD (gastroesophageal reflux disease) Meningitis UTI (urinary tract infection) Surgical History Surgical History H/O section Family History Family History Mother Family history of elevated blood lipids Social History Social History Second hand tobacco smoke exposure: Yes Substance use: never Gender identity (if verbalized by the patient): Female Comments At time of signature, I have reviewed and agree with nursing past medical, surgical, social and family history unless otherwise noted. Please see nursing chart for further information. There is no relevant family history pertinent to the presenting complaint Exam Narrative: GENERAL: Well-appearing HEAD: Normocephalic, atraumatic. ENT: Mucous membranes moist. Oropharynx without edema, erythema or lesions. NECK: Supple. No lymphadenopathy CHEST: Clear to auscultation. HEART: Regular rate and rhythm. SKIN: Warm, dry. Right dorsal foot with mild swelling from 3rd toe and metatarsal extending laterally. No redness or streaking. Mild tenderness. Ambulatory with steady gait. Cap refill <3 seconds. Foot with normal strength and sensation. NEURO: Alert and oriented x3. Course Course Emergency Course: Patient is aware of diagnosis, understands and agrees to treatment plan. Anticipatory guidance given. Patient agrees to follow-up as directed and is aware of reasons to seek care at the emergency department. Portions of this record may have been created with voice recognition software Level of Care: Express Care Visit Vital Signs Vital signs: Vital Signs Temperature 97.1 F L 09/20/22 18:35 Pulse Rate 94 09/20/22 18:35 Respiratory Rate 12 09/20/22 18:35 Blood Pressure 136/84 09/20/22 18:35 Pul
== END 2022-09-20 19:04 | disposition home or self-care (01) ==
PROVIDERS: Emergency Provider Nurse Practitioner Family
DX: M79.89 Other specified soft tissue disorders (principal); E11.9 Type 2 diabetes mellitus without complications; K21.9 Gastro-esophageal reflux disease without esophagitis; Z86.61 Personal history of infections of the central nervous system; Z87.898 Personal history of other specified conditions; Z79.84 Long term (current) use of oral hypoglycemic drugs
CPT/HCPCS: 99213; G0463

== ENCOUNTER 2022-10-09 14:18 | Emergency (ER) | payer OTHER, SELFPAY ==
[2022-10-09 14:23] VITALS: BP 136/81; PULSE 118; RESP 18; TEMP 37.3; O2SAT 99
--- NOTE | 2022-10-09 14:58 | ED.FEMALEGU ---
HPI - Female Genitourinary General Chief complaint: Urogenital-Female Stated complaint: Abdominal Pain Time Seen by Provider: 10/09/22 14:32 Source: patient and RN notes reviewed Mode of arrival: ambulatory Limitations: no limitations History of Present Illness HPI Narrative: Patient presents today complaining of lower abdominal pain and dysuria since yesterday. Patient had diarrhea all day yesterday, but she has had no diarrhea today. Denies hematuria. States she passed a large vaginal blood clots this morning. Believes this is related to her recently starting Depo-Provera. Reports some mild nausea but no vomiting. States she has not had much oral fluids due to the nausea and states she just did not feel like drinking. Related Data Home Medications Medication Instructions Recorded Confirmed insulin glargine 100 unit/mL (3 30 unit subcut QAM 07/25/20 10/09/22 mL) subcutaneous pen (Lantus Solostar U-100 Insulin) insulin regular human 100 unit/mL 1 sliding scale dose subcut 07/25/20 10/09/22 injection solution cartridge USEASDIRECTD bupropion HCl 150 mg 24 hr tablet, 150 mg PO DAILY 09/20/22 10/09/22 extended release blood-glucose sensor (Dexcom G6 10/09/22 10/09/22 Sensor device) blood-glucose transmitter (Dexcom 10/09/22 10/09/22 G6 Transmitter device) medroxyprogesterone 150 mg/mL See Rx Instructions .Route .COMPLEX 10/09/22 10/09/22 intramuscular suspension Allergies Allergy/AdvReac Type Severity Reaction Status Date / Time No Known Allergies Allergy Verified 10/09/22 14:21 Review of Systems Review of Systems: CONSTITUTIONAL: Denies body aches, fever, chills, or sweats. EYES: Denies visual changes, redness, or discharge. ENT: Denies rhinorrhea, congestion, sore throat, or otalgia. CARDIOVASCULAR: Denies chest pain, palpitations, or edema. RESPIRATORY: Denies cough or dyspnea. GASTROINTESTINAL: Denies vomiting. + nausea, diarrhea, lower abdominal pain GENITOURINARY: Denies hematuria.+ dysuria SKIN: Denies rash, itching, or wounds. MUSCULOSKELETAL: Denies back pain, joint pain, or myalgia. NEUROLOGIC: Denies headache, numbness, tingling, or weakness. PSYCH: Denies depression or anxiety. [facility] Past Medical History Medical History Arm fracture, left Diabetes mellitus GERD (gastroesophageal reflux disease) Meningitis UTI (urinary tract infection) Surgical History Surgical History H/O section Family History Family History Mother Family history of elevated blood lipids Social History Social History Second hand tobacco smoke exposure: Yes Substance use: never Gender identity (if verbalized by the patient): Female Comments At time of signature, I have reviewed and agree with nursing past medical, surgical, social and family history unless otherwise noted. Please see nursing chart for further information. There is no relevant family history pertinent to the presenting complaint Exam Narrative: GENERAL: Well-appearing, well-nourished, and in no acute distress. HEAD: Normocephalic, atraumatic. EYES: EOMI. No redness or drainage. Conjunctivae normal. ENT: Mucous membranes pink and moist. NECK: Normal AROM. CHEST: No respiratory distress. Clear to auscultation. HEART: Regular rate and rhythm. No murmur appreciated. Normal peripheral pulses. ABDOMEN: Soft, nontender, nondistended, normal active bowel sounds. MUSCULOSKELETAL: No bony tenderness. EXTREMITIES: Normal range of motion. No edema. SKIN: Warm, dry, no rash. Capillary refill normal. Normal skin turgor. NEURO: No focal deficits. Alert and oriented x3. Gait steady. PSYCH: Normal affect. No signs of depression or anxiety. Course Course Emergency Course: [id number]
== END 2022-10-09 15:16 | disposition home or self-care (01) ==
PROVIDERS: Emergency Provider Nurse Practitioner
DX: N30.01 Acute cystitis with hematuria (principal); E11.9 Type 2 diabetes mellitus without complications; K21.9 Gastro-esophageal reflux disease without esophagitis; Z86.61 Personal history of infections of the central nervous system
CPT/HCPCS: 81003; 87077; 87086; 87186; 99213; G0463

== ENCOUNTER 2024-03-01 21:40 | Emergency (ER) | payer OTHER, MEDICAID, SELFPAY ==
[2024-03-01 21:57] VITALS: BP 114/73; PULSE 81; RESP 20; TEMP 35.9; O2SAT 100
[2024-03-01 22:06] LABS: Glucose Point of Care 360 mg/dl (65-105)
== END 2024-03-01 23:00 | disposition left against medical advice (07) ==
PROVIDERS: Emergency Provider Emergency Medicine
DX: R73.9 Hyperglycemia, unspecified (principal); R82.4 Acetonuria
CPT/HCPCS: 82948; 99199